=== PATIENT | female | born 1985 | race Caucasian/White ===

== ENCOUNTER 2022-05-23 16:54 | Emergency (ER) | payer MEDICAID ==
[2022-05-23] MEDS ORDERED: Ondansetron 4 MG Tab.DIS PO ONE (16:55)
[2022-05-23] MEDS ORDERED: Ondansetron 4 MG Tab.DIS PO PRN (17:29)
[2022-05-23] MEDS ORDERED: cefTRIAXone 1 GM Vial IM ONE (17:29)
[2022-05-23] MEDS ORDERED: Ketorolac 30 MG/ML SDV IM ONE (17:30)
== END 2022-05-23 17:55 | disposition home or self-care (01) ==
LOC: FB.ED 16:54
DX: K04.7 Periapical abscess without sinus (principal); Z91.030 Bee allergy status; Z79.899 Other long term (current) drug therapy
CPT/HCPCS: 96372; 99282; J0696; J1885; Q0162